=== PATIENT | male | born 1945 | race Caucasian/White ===

== ENCOUNTER 2019-05-25 08:00 | Outpatient (CLI) | payer OTHER, SELFPAY | END 2019-05-25 09:00 | disposition home or self-care (01) | LOC: US 11-22 12:44 | PROVIDERS: Family Provider Emergency Medicine Emergency Medical Services; PCP Emergency Medicine Emergency Medical Services; Visit Provider Urology | DX: N40.1 Benign prostatic hyperplasia with lower urinary tract symptoms (principal); N13.8 Other obstructive and reflux uropathy | CPT/HCPCS: 81001 ==

== ENCOUNTER 2019-05-30 15:11 | Observation (INO) | payer OTHER, SELFPAY ==
[2019-05-27 09:46] VITALS: BMI 38.5
--- NOTE | 2019-05-27 10:08 | ANES.PREANE2 ---
Pre-Anesthetic Assessment Pre-Anesthetic Assessment: Height/Weight: Height 1.85 m Weight 132.449 kg Preop Diagnosis: bladder tumor Proposed Procedure: Operation Date: 05/30/19 13:10 Proposed Procedures p Cystoscopy 17686 C66.9(Not Applicable) - Fede Barron MD s Transurethral Resection Bladder Tumor(Not Applicable) - Fede Barron MD Social: Social History: Tobacco (30 pk history, quit 6 year ago. ) Exam: Pre-Anes Outpt Exam: alert and oriented x 3 Airway: Submandibular: WNL Cervical ROM: WNL MP: 2 Dentition: Full History/ROS: No significant history except as noted and No significant complaints Pulmonary: Pulmonary: COPD, JONES and Sleep apnea (cpap) Comments: history of TB ([place]) sputum sample couple weeks ago negative, had lung surgery in . more JONES in last couple years. uses MDI sometimes none and sometimes a couple times a day. CV/HEM: CV/HEM: HTN Comments: denies any CP : : None reported Hepatic: Hepatic: None reported GI: GI: None reported Metabolic: Metabolic: Morbid obesity Musc/skel: Musc/skel: OA/DJD Neuropsych: Neuropsych: None reported Anesthetic Plan: ASA status: 3 Anesthesia: General Risk of > 500 ml blood loss (7ml/kg in children): No PFSH Anesthesia PFSH: Medical History (Updated 05/27/19 @ 09:55 by Shreya Segura) BPH loc w urin obs/LUTS Cancer of overlapping sites of bladder Other male erectile dysfunction Surgical History (Updated 05/27/19 @ 09:55 by Shreya Segura) History of left nephrectomy Nephro ureterectomy Social History Smoking and tobacco status: former smoker Alcohol intake: current Adopted: No Caregiver/support person: No Marital status: Current occupational status: retired History of recent travel: No Current gender identity: Male Data Anesthesia Cardiac Studies: No Data to Display
[2019-05-30] VITALS (13 sets, daily range): BP systolic 111–162; BP diastolic 71–90; PULSE 76–99; RESP 15–20; TEMP 36.3–37.3; O2SAT 93–100
--- NOTE | 2019-05-30 12:31 | P.ANESUD_ITS ---
Pre-Anesthetic Update Pre-Anesthetic Assessment: Date of Surgery/Procedure: 05/30/19 Preop Rosalind gnosis: Recurrent bladder cancer Proposed Procedure: Operation Date: 05/30/19 13:10 Proposed Procedures p Cystoscopy 29704 C66.9(Not Applicable) - Fede Barron MD s Transurethral Resection Bladder Tumor(Not Applicable) - Fede Barron MD Last Intake: Intake Last Liquid Date 05/30/19 Last Liquid Time 07:30 Last Solid Date 05/29/19 Last Solid Time 18:00 Vitals: Temperature 98.5 F 05/30/19 11:53 Temperature Source Temporal Artery S can 05/30/19 11:53 Pulse Rate 76 05/30/19 11:53 Pulse Rhythm 05/30/19 11:53 Pulse Strength 3+ Normal 05/30/19 11:53 Respiratory Rate 18 05/30/19 11:53 Blood Pressure 123/71 05/30/19 11:53 Blood Pressure Charlette n 88 05/30/19 11:53 Pulse Oximetry 95 05/30/19 11:53 Oxygen Delivery Me thod 05/30/19 11:53 Cardiac Studies: No Data to Display
[2019-05-30] MEDS: sodium chloride 0.9% 1,000 ML 30 ML IV (13:25)
--- NOTE | 2019-05-30 14:51 | P.OP_ITS ---
Operative Report Date of procedure: May 30, 2019 Pre-op Diagnosis: Recurrent bladder cancer Post-op diagnosis: same Procedure Done: Cystoscopy, transurethral resection of multiple small bladder tumors Pathology: Right, left, central trigone Bladder neck Surgeon: Anderson Anesthesia: General Estimated blood loss: Minimal Urine output: Not measured Complications: None Findings: 3 small bladder tumors along the trigone. To that were lateral to the ureteral orifices and one in the central trigone. Papillary lesions along the prostatic vesicle junction primarily at the 10 through 9 o'clock position and the 1 through 3 o'clock position. Fully resected sent for pathologic evaluation. Condition: stable Disposition: PACU Brief History: Mr. 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 Status post left nephro ureterectomy via robotic technique in August 2017 for a low-grade papillary urothelial cancer. The bladder tumors recurred following the nephro ureterectomy. Recent surveillance cystoscopy showed a couple small recurrences along the trigone with several just inside the bladder neck. He was admitted for TURBT. Procedure: After routine preoperative evaluation examination and obtaining of informed consent he was taken to the operating suite on 05/30/2019 where general anesthesia was administered without difficulty after appropriate timeout performed, SCDs confirmed to be functioning, preoperative antibiotics administered, beta-talha protocol confirmed. Prepped and draped in usual sterile fashion in dorsolithotomy position pain careful attention to avoiding pressure points [address] [place] cystoscope with 30 degree lens was introduced into urethral meatus and advanced into the bladder under videoscopy. Bladder was systematically examined with the findings as described above. Cold cup biopsy forceps were utilized to sample the smaller tumors along the tri gone lateral to both orifices and one in the central trigone. These were sent separately. The urethra was then calibrated with [place] sounds and easily accommodated [address] [place]. Well-lubricated [address] [place] continuous flow resectoscope sheath was advanced into the bladder with assistance of a visual obturator. The gyrus bipolar system was utilized with the super loop for resection of the papillary lesions along the bladder neck from the 10:00 to 9 o'clock position and 1:00 to 3 o'clock position. These specimens were sent for pathologic evaluation and then the button probe was utilized for complete fulguration of all resection and biopsy sites. Care was made to avoid resection or excision near the ureteral orifices especially the right side where there still was a kidney. On final inspection all sites were hemostatic. The bladder was drained with a 22 [address] [place] three-way Chung catheter with 30 cc placed in the balloon. Light continuous bladder irrigation was initiated at a low rate. Efflux was clear. Tolerated the procedure well without complications and was awakened in the operating room and returned to recovery in stable condition. PLANS: 1. Admit to observation status. Plan on removing catheter in the morning if his urine is clear doing 6 bottle void and discharging if voids well with no excessive bleeding.
--- NOTE | 2019-05-30 15:10 | SUR.PHASEI ---
PT AWAKE ALERT ON RA PT C/O OF PAIN TO PENIS BUT REFUSED PAIN MEDS, CBI INFUSING AT MOD RATE URINE CLEAR IN TUBING,DR SULTANA AT BEDSIDE, PT ALERT.
--- NOTE | 2019-05-30 15:50 | SUR.PHASEI ---
1540 PT TO ROOM ALERT MOVES SELF TO BED [address] CARLOS INTACT WITH CBI INFUSING, VSS BP 141/79, SATS 94\\\\\\\\\\\\\\\5 ON RA
[2019-05-30] MEDS: lactated ringers 1,000 ML 50 ML IV (16:12)
[2019-05-30] MEDS: phenazopyridine 100 mg Tablet 200 MG PO (17:31)
[2019-05-30] MEDS: HYDROcodone-acetaminophen 5-325 mg Tablet 1 TAB PO ×2 (17:31→23:03)
--- NOTE | 2019-05-30 18:45 | PC.NURSE ---
SHIFT SUMMARY Patient tolerated procedure well. CBI drip is very slow, urine out is clear yellow with no clots. patient requiring minimal pain medication. alert and oriented.
[2019-05-30] MEDS: albuterol 8 gm MDI 1 PUFF INHALATION (21:11)
[2019-05-31] VITALS (10 sets, daily range): BP systolic 118–126; BP diastolic 72–76; PULSE 78–97; RESP 16–20; TEMP 36.6–37.1; O2SAT 91–96; BMI 39.4
--- NOTE | 2019-05-31 04:56 | PC.NURSE ---
patient has tolerated CBI quite well tonight- no distention, pressure or pain in suprapubic area, as well as no need for manual irrigation. Currently running at a moderate drip, urine noted to be pyridium stained as well as what seems to be lightly blood tinged. Approx 450ml urine output at this time -- Further input/output total to be charted at end of shift.
[2019-05-31] MEDS: albuterol 8 gm MDI 1 PUFF INHALATION ×2 (08:00→11:32)
[2019-05-31] MEDS: phenazopyridine 100 mg Tablet 200 MG PO ×3 (08:58→17:43)
[2019-05-31] MEDS: atorvastatin 40 mg Tablet PO (08:58)
[2019-05-31] MEDS: lisinopril 20 mg Tablet PO (08:58)
[2019-05-31] MEDS: hydroCHLOROthiazide 25 mg Tablet PO (08:58)
[2019-05-31] MEDS: HYDROcodone-acetaminophen 5-325 mg Tablet 1 TAB PO (11:40)
--- NOTE | 2019-05-31 11:48 | ANE.PACU2 ---
 Inpatient post-anesthesia follow up: Airway intact: Yes Vital signs: Temperature 98.7 F Pulse Rate 94 Respiratory Rate 18 Blood Pressure 126/74 Pulse Oximetry 94 Oxygen Delivery Me thod Room Air Oxygen Flow Rate 8 Fraction of Inspir ed Oxygen Hydration adequate: Yes Nausea and vomiting: No Pain level: 3 Mental status: Baseline
[2019-05-31] MEDS: lactated ringers 1,000 ML 50 ML IV (12:32)
--- NOTE | 2019-05-31 17:41 | P.DS_ITS ---
Discharge Providers Date of Admission: 05/30/19 15:11 Date of Discharge: May 31, 2019 Attending Provider at Admission: Fede Barron MD Attending Provider at Discharge: Fede Barron MD Primary Care Provider: Giovany Ye DO Diagnoses at Discharge Discharge Diagnosis (1) Cancer of overlapping sites of bladder: Status: Acute (2) Cancer, bladder, neck: Status: Acute (3) Postoperative urinary retention: Status: Acute Reason for Visit Reason for Visit: Reason For Visit: Cystoscopy Hospital Course Hospital Course: He was admitted through outpatient surgery on the day of the procedure which went well. There was several areas of papillary change along the bladder neck consistent with low-grade TCCA. Did not appear to be invasive. He had 3 other areas along the trigone of similar quality. All areas were completely resected with basis fulgurated. Postoperatively he did well his urine remained clear. Voiding trial was conducted on postoperative day #1 but he failed to void adequately requiring in and out catheterization. Was offered the opportunity to remain overnight again for intermittent catheterization as needed with hope of spontaneous recovery but instead preferred having catheter placed and follow-up in my office later in the week for voiding trial so that he could be discharged tonight. Discharged home in stable condition on postoperative day #1 evening Physical Exam Const: COMMON NORMALS: no apparent distress and oriented x3 Resp: COMMON NORMALS: normal respiratory effort and no retractions Cardio: COMMON NORMALS: regular rate RATE: regular rate Neuro: COMMON NORMALS: oriented x3 Psych: COMMON NORMALS: mental status grossly normal, thought process normal and cooperative THOUGHT PROCESS: normal thought process Urinary Catheter Management^: 3-way Urethral CBI: Cath Placed During This Visit: yes Urethral Indwelling: Yes Reason for Continuing Indwelling Catheter: Acute Urinary Retention or Obstruction Urinary Catheter Date of Insertion: 05/30/19 Urinary Catheter Time of Insertion: 14:38 Discharge Data Data Completed and Pending: Pending at discharge Category Date Time Status ES surgery / GI i mages Routine Exams 05/30/19 14:57 Ordered Pathology: Surgic al [PTH] Routine Pth 05/30/19 16:34 Received Vitals: Last Vital Signs Temp 98.5 F 05/31/19 15:35 Pulse 78 05/31/19 15:35 Resp 16 05/31/19 15:35 BP 120/76 05/31/19 15:35 Pulse Ox 92 05/31/19 15:35 Discharge Plan Discharge Patient Disposition: Home, Self-Care Condition: Stable Prescriptions: Continued Symbicort 160-4.5 mcg/actuation HFA aerosol inhaler 2 puff INHALATION BID RF: 0 loratadine [Claritin] 10 mg tablet 10 mg PO DAILY PRN (Reason: allergies) RF: 0 atorvastatin 40 mg tablet 40 mg PO DAILY RF: 0 lisinopril-hydrochlorothiazide 20-25 mg tablet 1 tab PO DAILY RF: 0 albuterol sulfate 90 mcg/actuation HFA aerosol inhaler 1 inh INHALATION QID RF: 0 Spiriva Respimat 1.25 mcg/actuation Mist 2 puff INHALATION DAILY RF: 0 Discharge Orders: Discharge Order (Routine); Ordered 05/31/19 Ordered By: Fede Barron Discharge Diet: Usual diet Discharge Activity: Limit activity as instructed Activity Restrictions/Additional Instructions: Can use either the big bag or the leg bag with the Chung catheter at home. We will plan on a voiding trial on Thursday in my office. Hopefully the pathology report will be back by that time. Discharge Attestations Time Spent in Discharge Care*: less than 30 min Quality Metrics Clinical Quality Measures During this hospital stay, did patient experience: None Coding Level of Care Code Acute Automobile Wrecker for Chg Fwd Exam Expanded Problem Focused Diagnoses Cancer of overlapping sites of bladder C67.8 Cancer, bladder, neck C67.5 Postoperative urinary retention N99.89; R33.8
--- NOTE | 2019-05-31 18:59 | PC.NURSE ---
DISCHARGE SUMMARY Patient was given discharge information. vitals within normal limits. patient went home with Chung catheter. follow up appointment made. alert and oriented. sent home with Chung bag and leg bag. patient taken to vehicle via wheelchair to transport self home.
--- NOTE | 2019-06-21 14:27 | W.PM.OPSUD ---
Surgery/Procedure H&P Update DATE OF PROCEDURE: 05/30/19 DATE H&P PERFORMED: 05/25/19 H&P UPDATE INFORMATION: I have reviewed H&P completed within last 30 days, I have examined patient prior to procedure and No changes to prior documentation CHANGES TO PREVIOUS DOCUMENTATION: This update was completed shortly before surgery. Documentation was delayed due to error. PREOP DIAGNOSIS: Recurrent bladder cancer PLANNED PROCEDURE: Operation Date: 05/30/19 13:10 Proposed Procedures p Cystoscopy 41415 C66.9(Not Applicable) - Fede Barron MD s Transurethral Resection Bladder Tumor(Not Applicable) - Fede Barron MD
== END 2019-05-31 19:02 | disposition home or self-care (01) ==
LOC: MEDSURG 15:11
PROVIDERS: Admitting Provider Urology; Family Provider Emergency Medicine Emergency Medical Services; PCP Emergency Medicine Emergency Medical Services; Visit Provider Urology
PROC: 0TJB8ZZ Inspection of Bladder, Via Natural or Artificial Opening Endoscopic (ICD-10-PCS; CPT 52000; principal; 2019-05-30 13:10)
PROC: 0TBB8ZZ Excision of Bladder, Via Natural or Artificial Opening Endoscopic (ICD-10-PCS; CPT 52234; 2019-05-30 13:10)
DX: C67.8 Malignant neoplasm of overlapping sites of bladder (principal); R33.9 Retention of urine, unspecified; Z87.891 Personal history of nicotine dependence; I10 Essential (primary) hypertension; E66.01 Morbid (severe) obesity due to excess calories; Z68.39 Body mass index [BMI] 39.0-39.9, adult; M19.90 Unspecified osteoarthritis, unspecified site; N40.1 Benign prostatic hyperplasia with lower urinary tract symptoms; N13.8 Other obstructive and reflux uropathy
CPT/HCPCS: 52234; 12345; 51702; 88305; 94640; 96360; 96361; G0378; J1100; J2001; J2405; J2704; J2710; J3010; J3490; J3535; J7030

== ENCOUNTER 2019-06-13 06:58 | Outpatient (CLI) | payer OTHER, SELFPAY ==
--- NOTE | 2019-06-13 07:50 | XRR_ITS ---
PROCEDURE INFORMATION: Exam: XR Chest, 2 Views Exam date and time: 06/13/2019 8:12 AM Age: 73 years old Clinical indication: Shortness of breath; Prior surgery; Surgery date: 6+ months; Surgery type: Upper right lung, date not provided; Additional info: Bronchiectasis TECHNIQUE: Imaging protocol: XR of the chest Views: Frontal and lateral upright views. COMPARISON: CR Chest 1 [place] [id number] 03/17/2019 10:00 AM FINDINGS: Lungs: Mild pulmonary hyperexpansion. Stable bibasilar pulmonary parenchymal scarring. Stable architectural distortion right lower lung zone. The lungs are otherwise peripherally clear bilaterally. The pulmonary vasculature is stable. Pleural space: No pleural effusion. No pneumothorax. Heart/Mediastinum: The heart is normal in size and contour. Vasculature: Mild aortic arch atherosclerotic calcification without ectasia. Bones/joints: Prior right thoracotomy with periosteal regeneration of the posterolateral 6th rib. Right lateral and anterior vertebral body marginal osteophytes are noted at multiple thoracic spinal levels. XR/XR chest 2V* [id number] IMPRESSION: 1. Mild pulmonary hyperexpansion. 2. Stable bibasilar pulmonary parenchymal scarring.
--- NOTE | 2019-06-13 10:56 | PFTS_ITS ---
Date of Study:06/13/2019 Date of Dictation: MECHANICS: Forced vital capacity (FVC) is mildly reduced. Forced expiratory volume in one second (FEV1) is reduced. FEV1/FVC is reduced. FLOW VOLUME LOOP: Reduced flow at all lung volumes with significant scooping. LUNG VOLUMES: Not performed DIFFUSING CAPACITY FOR CARBON MONOXIDE: Normal. INTERPRETATION: The pulmonary function tests are consistent with severe airflow obstruction. There is significant postbronchodilator response. Gas exchange (DLCO) is normal. MTDD
== END 2019-06-13 06:59 | disposition home or self-care (01) ==
LOC: RT 07:00
PROVIDERS: Family Provider Emergency Medicine Emergency Medical Services; PCP Emergency Medicine Emergency Medical Services; Visit Provider Orthopaedic Surgery
DX: J47.9 Bronchiectasis, uncomplicated (principal); F17.210 Nicotine dependence, cigarettes, uncomplicated
CPT/HCPCS: 71046; 94060; 94729; J7611

== ENCOUNTER → 2019-09-06 12:51 | Outpatient (BNVA) | payer OTHER, SELFPAY | PROVIDERS: Family Provider Emergency Medicine Emergency Medical Services; PCP Emergency Medicine Emergency Medical Services; Visit Provider Urology | DX: N99.89 Other postprocedural complications and disorders of genitourinary system (principal); R33.8 Other retention of urine; C67.8 Malignant neoplasm of overlapping sites of bladder | CPT/HCPCS: 81001 ==

== ENCOUNTER → 2020-01-09 09:04 | Outpatient (BNVA) | payer OTHER, SELFPAY | PROVIDERS: Family Provider Emergency Medicine Emergency Medical Services; PCP Emergency Medicine Emergency Medical Services; Visit Provider Urology | DX: C67.5 Malignant neoplasm of bladder neck (principal); C67.8 Malignant neoplasm of overlapping sites of bladder; N40.1 Benign prostatic hyperplasia with lower urinary tract symptoms | CPT/HCPCS: 81001 ==

== ENCOUNTER → 2020-06-11 08:10 | Outpatient (BNVA) | payer OTHER, SELFPAY | PROVIDERS: Family Provider Emergency Medicine Emergency Medical Services; PCP Emergency Medicine Emergency Medical Services; Visit Provider Urology | DX: C67.5 Malignant neoplasm of bladder neck (principal) | CPT/HCPCS: 81003 ==

== ENCOUNTER → 2020-11-12 08:17 | Outpatient (BNVA) | payer OTHER, SELFPAY | PROVIDERS: Family Provider Emergency Medicine Emergency Medical Services; PCP Emergency Medicine Emergency Medical Services; Visit Provider Urology | DX: C67.5 Malignant neoplasm of bladder neck (principal); C67.8 Malignant neoplasm of overlapping sites of bladder; Z85.54 Personal history of malignant neoplasm of ureter | CPT/HCPCS: 81003 ==

== ENCOUNTER 2020-11-26 07:37 | Day surgery (SDC) | payer OTHER, SELFPAY ==
[2020-11-21 15:01] VITALS: BMI 39.5
[2020-11-26 08:17] VITALS: BP 136/84; PULSE 76; RESP 20; TEMP 36.6; O2SAT 97
[2020-11-26] MEDS: sodium chloride 0.9% 1,000 ML 30 ML IV (08:24)
--- NOTE | 2020-11-26 08:42 | ANES.PREANE2 ---
Pre-Anesthetic Assessment Pre-Anesthetic Assessment: Height/Weight: Height 1.85 m Weight 136.078 kg Temp Pulse Resp BP Pulse Ox 97.8 F 76 20 H 136/84 97 11/26/20 08:17 11/26/20 08:17 11/26/20 08:17 11/26/20 08:17 11/26/20 08:17 Preop Diagnosis: his colon cancer Proposed Procedure: Operation Date: 11/26/20 09:00 Proposed Procedures p Colonoscopy 22380 Z85.038(Not Applicable) - North Stephenson MD Was Beta Felicia taken within 24 hours: N/A Last intake: Intake Last Liquid Date 11/25/20 Last Liquid Time 20:00 Last Solid Date 11/24/20 Social: Social History: No alcohol and No tobacco Exam: Pre-Anes Outpt Exam: alert, oriented x 3, clear to auscultation bilaterally and regular rate & rhythm Airway: Submandibular: WNL Cervical ROM: WNL MP: 2 Dentition: Chipped Pulmonary: Pulmonary: COPD Metabolic: Metabolic: Hyperlipidemia and Morbid obesity Anesthetic Plan: ASA status: 3 Anesthesia: MAC Risk of > 500 ml blood loss (7ml/kg in children): No Meds/Allergies Current Medications: Current Medications Generic Name Dose Route Start Last Admin Trade Name Freq PRN Reason Stop Dose Admin Sodium Chloride 1,000 mls @ 30 ml s/hr 11/26/20 08:00 11/26/20 08:24 Sodium Chloride 0.9% IV 11/27/20 07:59 30 mls/hr .Q24H STEPHIE Administration PFSH Anesthesia PFSH: Medical History BPH loc w urin obs/LUTS Cancer of overlapping sites of bladder Cancer, bladder, neck Other male erectile dysfunction Postoperative urinary retention Surgical History History of left nephrectomy Nephro ureterectomy Family History Father , 71 CAD (coronary artery disease) Cancer Mother , 67 CAD (coronary artery disease) Diabetes Social History Smoking and tobacco status: former smoker Alcohol intake: current Alcohol intake frequency: few times a month Adopted: No Caregiver/support person: No Marital status: Current occupational status: retired History of recent travel: No Current gender identity: Male Data Anesthesia Cardiac Studies: No Data to Display
--- NOTE | 2020-11-26 09:13 | W.PM.OPSFHP ---
Same Day Surgery H&P Indication for Procedure/HPI DATE OF PROCEDURE: November 26, 2020 CHIEF COMPLAINT/INDICATIONFOR SURGICAL PROCEDURE: For personal history of colon cancer. PREOP DIAGNOSIS: his colon cancer PLANNED PROCEDRUE: Operation Date: 11/26/20 09:00 Proposed Procedures p Colonoscopy 83301 Z85.038(Not Applicable) - North Stephenson MD Medications/Allergies* Home Medications Medication Instructions Recorded Confirmed Type albuterol sulfate 90 mcg/actuation 1 inh INHALATION QID 05/25/19 11/21/20 History aerosol inhaler atorvastatin 40 mg tablet 40 mg PO DAILY 05/25/19 11/21/20 History loratadine 10 mg tablet 10 mg PO DAILY PRN 05/25/19 11/26/20 History Spiriva Respimat 2 puff INHALATION DAILY 05/27/19 11/21/20 History amlodipine 10 mg tablet 10 mg PO DAILY 01/09/20 11/21/20 History furosemide 20 mg tablet 10 mg PO QAM 01/09/20 11/21/20 History Allergies/Adverse Reactions Allergy/AdvReac Type Severity Reaction Status Date / Time No Known Allergies Allergy Verified 11/13/20 12:59 Current Medications: Generic Name Dose Route Start Last Admin Trade Name Freq PRN Reason Stop Dose Admin Sodium Chloride 1,000 mls @ 30 mls/hr 11/26/20 08:00 11/26/20 08:24 Sodium Chloride 0.9% IV 11/27/20 07:59 30 mls/hr .Q24H STEPHIE Administration Pertinent History/Comorbid Conditions* Medical History (Updated 11/13/20 @ 13:44 by North Stephenson MD) BPH loc w urin obs/LUTS Cancer of overlapping sites of bladder Cancer, bladder, neck Other male erectile dysfunction Postoperative urinary retention Surgical History (Updated 05/25/19 @ 18:09 by Fede Barron MD) History of left nephrectomy Nephro ureterectomy Family History (Updated 05/18/19 @ 17:11 by Jeanne Brown RN) Father, 71 Mother, 67 Diabetes Mother CAD (coronary artery disease) Father Mother Cancer Father Social History Smoking and tobacco status: former smoker Alcohol intake: current Alcohol intake frequency: few times a month Adopted: No Caregiver/support person: No Marital status: Current occupational status: retired History of recent travel: No Current gender identity: Male Pertinent Exam Findings alert, oriented x 3, clear to auscultation bilaterally, regular rate & rhythm, operative site marked and procedure specific exam findings Recommendations Surgery/Procedure today Coding Level of Care Code Acute Machine Pecan Gatherer for Amparo Khan
[2020-11-26 09:40] VITALS: BP 96/66; PULSE 66; RESP 18; TEMP 37.3; O2SAT 91
[2020-11-26 09:51] VITALS: BP 120/84; PULSE 69; RESP 18; O2SAT 93
--- NOTE | 2020-11-26 15:32 | ANE.PACU2 ---
Inpatient post-anesthesia follow up: Airway intact: Yes Vital signs: Temperature 99.1 F Pulse Rate 69 Respiratory Rate 18 Blood Pressure 120/84 Pulse Oximetry 93 Oxygen Delivery Me thod Room Air Oxygen Flow Rate 4 Fraction of Inspir ed Oxygen Hydration adequate: Yes Nausea and vomiting: No Pain level: 1 Mental status: Baseline
== END 2020-11-26 10:17 | disposition home or self-care (01) ==
PROVIDERS: PCP Emergency Medicine Emergency Medical Services; Visit Provider Internal Medicine
PROC: 0DJD8ZZ Inspection of Lower Intestinal Tract, Via Natural or Artificial Opening Endoscopic (ICD-10-PCS; CPT 45378; principal; 2020-11-26 09:00)
DX: Z85.038 Personal history of other malignant neoplasm of large intestine (principal); N40.1 Benign prostatic hyperplasia with lower urinary tract symptoms; N13.8 Other obstructive and reflux uropathy; K57.30 Diverticulosis of large intestine without perforation or abscess without bleeding; Z85.51 Personal history of malignant neoplasm of bladder; Z82.49 Family history of ischemic heart disease and other diseases of the circulatory system; Z83.3 Family history of diabetes mellitus; Z87.891 Personal history of nicotine dependence; J44.9 Chronic obstructive pulmonary disease, unspecified; E78.5 Hyperlipidemia, unspecified; E66.01 Morbid (severe) obesity due to excess calories; Z68.39 Body mass index [BMI] 39.0-39.9, adult
CPT/HCPCS: 45378; 96360; 96361; J2704; J7030

== ENCOUNTER 2021-05-16 07:30 | Outpatient (CLI) | payer OTHER, MEDICARE, SELFPAY ==
--- NOTE | 2021-05-16 07:45 | CT_ITS ---
WS: [id number] CT ABDOMEN AND PELVIS WITH AND WITHOUT CONTRAST HISTORY: History of bladder cancer. TECHNIQUE: Unenhanced 5 mm axial imaging first performed through the abdomen. Post contrast imaging t hrough the abdomen and pelvis. Oral contrast has not been provided. Sagittal and coronal reformats a re submitted. All CT scans at [facility] use at least one of these dose optimization techniqu es: automated exposure control; mA and/or kV adjustment per patient size (includes targeted exams whe re dose is matched to clinical indication); or iterative reconstruction. CONTRAST: Omnipaque 300; 95 mL IV. DLP: 6478.79 mGy.cm COMPARISON: None available. Mild bronchial wall thickening at the lung bases with mild dilatation of the bronchi in the LEFT lowe r lobe. There are a few areas of mild tree-in-bud airspace disease. Heart is not enlarged. No signifi cant hiatal hernia. 10 mm retrocrural node on the RIGHT. Normal size liver with a few granulomata. Too small to characterize hypodensity measuring 6 mm in th e RIGHT lobe. Normal appearance of the portal vein. Gallbladder and spleen are negative for acute pro cess. There are splenic granulomatous. Normal pancreas and adrenal glands. Aorta: Atherosclerosis of aorta. Infrarenal abdominal aortic aneurysm with a maximum diameter 4.1 cm. Aneurysm extends over length of 5.1 cm. Normal enhancement of the central lumen. There are interrupt ed calcifications within the wall of aorta and asymmetric plaque. Heavy calcification continues into the common iliac arteries bilaterally. RIGHT kidney: Normal size RIGHT kidney. There is very mild perinephric stranding. There are a few sma ll hypodensities scattered within the renal cortex which are too small to characterize and probably r epresent cysts. No calcifications or obstruction. There are numerous parapelvic cysts within the cent ral kidney. On the delayed imaging there is good excretion from the kidney with no uroepithelial lesi ons. The ureter is patent to the urinary bladder. LEFT kidney: Surgically removed. No mass or adenopathy in the renal bed. Urinary bladder: Minimal distention of the urinary bladder on the noncontrast imaging. No enhancing m asses are identified. On the delayed imaging there is a small amount of contrast filling the dependen t portion of the bladder. Prostate gland is only mildly prominent measuring 5.7 x 3.9 cm. No ascites or pelvic lymphadenopathy. Stomach is nondistended. No small bowel obstruction. Moderate fecal retention throughout the colon. N umerous diverticula noted in the RIGHT colon. LEFT colon is tortuous and with overlapping loops. No a cute inflammation. No abscess. Surgical changes are noted along the anterior abdominal wall. Midline hernia contains fat only. Ingui nal canals are patent bilaterally containing fat only. CT/CT abdomen pelvis wo/w [id number] IMPRESSION: 1. Status post LEFT nephrectomy. No mass or adenopathy at the renal bed. 2. Normal size RIGHT kidney with no mass or obstruction. Numerous small parape lvic cysts. There are a few too small to characterize hypodensities which could very well be cysts 3. Infrarenal abdominal aortic aneurysm with a maximum diameter 4.1 cm. 4. Ventral abdominal wall hernia contains fat only. 5. Extensive diverticulosis in the descending and sigmoid colon with tortuous overlapping loops. No acute diverticulitis. 6. No bladder mass identified or abnormal enhancement. 7. Bilateral lower lobe bronchial wall thickening and bronchiectasis.
[2021-05-16 09:00] LABS: Basophils # 0.1 10^3/uL (0.0-0.1); Basophils % 0.8 %; Eosinophils # 0.1 10^3/uL (0.0-0.8); Eosinophils % 1.6 %; Hematocrit 48.9 % (42.0-52.0); Hemoglobin 15.8 g/dL (11.7-16.6); Lymphocytes # 1.7 10^3/uL (0.8-4.8); Lymphocytes % 22.3 %; Mean Corpuscular HGB Conc 32.3 g/dL (30.0-36.0); Mean Corpuscular Volume 95.9 fl (80-94); Mean Platelet Volume 9.8 fL (7.4-10.4); Monocytes # 0.6 10^3/uL (0.2-0.9); Monocytes % 7.9 %; Neutrophils # 5.08 10^3/uL (1.8-7.7); Neutrophils % 66.9 %; Nucleated Red Blood Cells % 0 %; Platelet Count 182 10^3/cmm (130-400); Red Cell Distribution Width 13.2 % (12.1-15.1); White Blood Count 7.6 10^3/uL (4.0-10.0)
[2021-05-16 09:23] LABS: Alanine Aminotransferase 25 U/L (0-41); Albumin Level 4.3 g/dL (3.5-5.2); Alkaline Phosphatase 127 IU/L (40-130); Anion Gap 13.3 (5-19); Aspartate Amino Transferase 18 U/L (0-40); Blood Urea Nitrogen 10 mg/dL (8-23); Calcium 8.5 mg/dL (8.5-10.5); Carbon Dioxide 26 mmol/L (22-29); Chloride 107 mmol/L (98-107); Globulin 2.4 g/dL (1.3-4.6); Glucose 108 mg/dL (65-115); Osmolality Calculated 294 mOsm/kg (285-295); Potassium 4.3 mmol/L (3.5-5.1); Sodium 142 mmol/L (136-145); Total Bilirubin 0.5 mg/dL (0.15-1.2); Total Protein 6.7 g/dL (6.6-8.7)
[2021-05-16] MEDS: iohexol 300 mg/mL 100 mL Btl IV (09:38)
== END 2021-05-16 07:31 | disposition home or self-care (01) ==
PROVIDERS: PCP Emergency Medicine Emergency Medical Services; Visit Provider Urology
DX: D53.9 Nutritional anemia, unspecified (principal); Z85.51 Personal history of malignant neoplasm of bladder; Z90.5 Acquired absence of kidney; I71.4 Abdominal aortic aneurysm, without rupture; K43.9 Ventral hernia without obstruction or gangrene; K57.30 Diverticulosis of large intestine without perforation or abscess without bleeding; J47.9 Bronchiectasis, uncomplicated
CPT/HCPCS: 74178; 80053; 81003; 85025

== ENCOUNTER 2021-11-12 08:36 | Outpatient (CLI) | payer MEDICARE, OTHER, SELFPAY ==
[2021-11-12 09:20] LABS: Basophils # 0.1 10^3/uL (0.0-0.1); Basophils % 0.5 %; Eosinophils # 0.1 10^3/uL (0.0-0.8); Eosinophils % 0.6 %; Hematocrit 48.3 % (42.0-52.0); Lymphocytes # 2.4 10^3/uL (0.8-4.8); Lymphocytes % 25.6 %; Mean Corpuscular HGB Conc 33.1 g/dL (30.0-36.0); Mean Corpuscular Hemoglobin 30.5 pg (28.0-34.0); Mean Platelet Volume 9.7 fL (7.4-10.4); Monocytes # 0.6 10^3/uL (0.2-0.9); Monocytes % 6.5 %; Neutrophils % 66.4 %; Nucleated Red Blood Cells % 0 %; Platelet Count 212 10^3/cmm (130-400); Red Blood Count 5.25 10^6/uL (4.1-5.3); Red Cell Distribution Width 13.2 % (12.1-15.1); White Blood Count 9.4 10^3/uL (4.0-10.0)
--- NOTE | 2021-11-12 09:33 | XRR_ITS ---
PROCEDURE INFORMATION: Exam: XR Chest Exam date and time: 11/12/2021 9:33 AM Age: 75 years old Clinical indication: Other: Constipation; Prior surgery; Surgery type: Upper right lobe; Patient HX: HX of cancer of bladder, prostate, upset stomach that is uncomfortable for a month. Unable to have bowel movements without taking laxatives. HX of tuberculosis; Additional info: Cancer, bladder, neck, chest XR @ [facility] on 11/12/21. Appt is at 8:15 in clinic TECHNIQUE: Imaging protocol: Radiologic exam of the chest. Views: 2 views. PA and Lateral COMPARISON: CR XR chest 2V* [id number] 06/13/2019 8:08 AM FINDINGS: Lungs: There are normal lung volumes without confluent interstitial or airspace opacities. Minimal tenting/scarring of the right hemidiaphragm region is seen. Pleural spaces: Unchanged blunting of the right costophrenic angle is seen, suggestive of pleural thickening. There is no left pleural effusion. There is no pneumothorax. Heart/Mediastinum: The heart size is normal. There is a mildly tortuous thoracic aorta. The trachea is in the midline. Bones/joints: No acute abnormalities. Small degenerative osteophytes and mild degenerative disc disease changes are seen throughout the thoracic spine. XR/XR chest 2V* [id number] IMPRESSION: No confluent infiltrates in the lungs.
[2021-11-12 09:45] LABS: Albumin Level 4.2 g/dL (3.5-5.2); Alkaline Phosphatase 104 IU/L (40-130); Blood Urea Nitrogen 14 mg/dL (8-23); Calcium 9.6 mg/dL (8.5-10.5); Carbon Dioxide 28 mmol/L (22-29); Chloride 101 mmol/L (98-107); Globulin 2.6 g/dL (1.3-4.6); Glucose 103 mg/dL (65-115); Osmolality Calculated 291 mOsm/kg (285-295); Sodium 140 mmol/L (136-145); Total Bilirubin 0.6 mg/dL (0.15-1.2); Total Protein 6.8 g/dL (6.6-8.7)
[2021-11-12 11:05] LABS: Anion Gap 14.8 (5-19); Potassium 3.8 mmol/L (3.5-5.1)
[2021-11-12 11:06] LABS: Alanine Aminotransferase 26 U/L (0-41); Aspartate Amino Transferase 21 U/L (0-40)
== END 2021-11-12 08:37 | disposition home or self-care (01) ==
LOC: LAB 08:39
PROVIDERS: PCP Emergency Medicine Emergency Medical Services; Visit Provider Urology
DX: C67.5 Malignant neoplasm of bladder neck (principal); C67.8 Malignant neoplasm of overlapping sites of bladder; N40.1 Benign prostatic hyperplasia with lower urinary tract symptoms; K59.00 Constipation, unspecified; R10.9 Unspecified abdominal pain
CPT/HCPCS: 36415; 52000; 71046; 80053; 81003; 85025; 99212

== ENCOUNTER 2022-05-15 09:06 | Outpatient (CLI) | payer OTHER, SELFPAY ==
--- NOTE | 2022-05-15 09:39 | XR_ITS ---
WS: [id number] XR chest 2V* [id number] REASON FOR EXAM: Bladder neck Cancer FINDINGS: Post thoracotomy rib, pleural, and lung parenchymal changes changes in the right hemithorax. The heart and mediastinum are within normal limits. Calcified granulomatous disease bilaterally. Chronic reticular interstitial changes in both lower krystina gs. Flattening of the hemidiaphragms. No acute pulmonary parenchymal or pleural abnormality. Moderate degenerative changes in the mid and lower thoracic spine and in the right shoulder joint. Chest is unchanged compared to 11/12/2021. XR/XR chest 2V* [id number] IMPRESSION: Stable post thoracotomy chest with no acute/subacute abnormality.
[2022-05-15 10:03] LABS: Alanine Aminotransferase 17 U/L (0-41); Albumin Level 4.1 g/dL (3.5-5.2); Alkaline Phosphatase 104 U/L (40-130); Anion Gap 14.1 (5-19); Aspartate Amino Transferase 12 U/L (0-40); Blood Urea Nitrogen 19 mg/dL (8-23); Calcium 9.1 mg/dL (8.5-10.5); Carbon Dioxide 28 mmol/L (22-29); Chloride 104 mmol/L (98-107); Globulin 2.4 g/dL (1.3-4.6); Glucose 97 mg/dL (65-115); Osmolality Calculated 296 mOsm/kg (285-295); Potassium 4.1 mmol/L (3.5-5.1); Sodium 142 mmol/L (136-145); Total Bilirubin 0.6 mg/dL (0.15-1.2); Total Protein 6.5 g/dL (6.6-8.7)
[2022-05-15 11:01] LABS: Basophils # 0.1 10^3/uL (0.0-0.1); Basophils % 0.5 %; Eosinophils # 0.1 10^3/uL (0.0-0.8); Eosinophils % 1.2 %; Hematocrit 48.8 % (42.0-52.0); Hemoglobin 16.1 g/dL (11.7-16.6); Lymphocytes # 2.9 10^3/uL (0.8-4.8); Lymphocytes % 27.3 %; Mean Corpuscular Hemoglobin 30.3 pg (28.0-34.0); Mean Corpuscular Volume 91.9 fl (80-94); Mean Platelet Volume 9.8 fL (7.4-10.4); Monocytes # 0.6 10^3/uL (0.2-0.9); Monocytes % 5.7 %; Neutrophils # 6.94 10^3/uL (1.8-7.7); Nucleated Red Blood Cells % 0 %; Platelet Count 213 10^3/cmm (130-400); Red Blood Count 5.31 10^6/uL (4.1-5.3); Red Cell Distribution Width 13.2 % (12.1-15.1); White Blood Count 10.7 10^3/uL (4.0-10.0)
== END 2022-05-15 09:07 | disposition home or self-care (01) ==
LOC: LAB 09:09
PROVIDERS: PCP Emergency Medicine Emergency Medical Services; Visit Provider Urology
DX: C67.5 Malignant neoplasm of bladder neck (principal); N40.1 Benign prostatic hyperplasia with lower urinary tract symptoms
CPT/HCPCS: 36415; 52000; 71046; 80053; 81003; 85025; 99213